=== PATIENT | male | born 1980 | race Two or more races ===

== ENCOUNTER 2021-08-09 17:28 | Emergency (ER) | payer OTHER ==
--- NOTE | 2021-08-09 18:46 | NUR ---
PT CALLED IN TO BE TRIAGED. VITALS SIGNS TAKEN AND DECIDED NOT TO BE SEEN ANYMORE. WILL COME BACK IF HE FEELS WORST. +COVID.
== END 2021-08-09 18:51 | disposition home or self-care (01) ==
LOC: ER 17:36
DX: Z53.21 Procedure and treatment not carried out due to patient leaving prior to being seen by health care provider (principal)